=== PATIENT | female | born 1975 | race Caucasian/White ===

== ENCOUNTER 2018-06-21 11:52 | Emergency (ER) | payer MEDICAID ==
--- NOTE | 2018-06-21 12:36 | EDM.PDOC ---
ED HPI GENERAL MEDICAL PROBLEM - General Chief Complaint: ENT Problem Stated Complaint: SORE THROAT Time Seen by Provider: 06/21/18 12:35 Source of Information: Reports: Patient History Limitations: Reports: No Limitations - History of Present Illness INITIAL COMMENTS - FREE TEXT/NARRATIVE: 43-year-old female accompanies her 6-year-old son to the ED has been ill for the last 4-1/2 days with high fever greater than 102 with associated cough sore throat and poor appetite. His symptoms certainly sound like he may well of had influenza and is at the talonavicular his illness. He had a sore throat still and therefore she brought him to the ED for further evaluation. He missed all of last weeks of school except for Saturday. Herself is now developing a scratchy sore throat this morning. She has no cough bodyache or headache or fever yet. She did not have a flu shot this year Onset: Today Onset Date: 06/21/18 Onset Time: 07:00 Duration: Hour(s): Location: Reports: Neck (Sore throat) Quality: Reports: Ache, Burning Severity: Moderate (Sore throat) Improves with: Reports: Medication Worsens with: Reports: None Context: Reports: Sick Contact (Son is ill with upper respiratory tract infection suggestive of influenza and is with her in the ED. He will be screened for the influenza virus.). 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 Denies: Fever, Chills, Malaise, Weakness, Fatigue, Weight Loss HEENT: Reports: Throat Pain Respiratory: Reports: Cough Cardiovascular: Reports: No Symptoms (Has a bit of a chronic cough from smoking. ) Endocrine: Reports: No Symptoms, Polyuria GI/Abdominal: Reports: No Symptoms : Reports: No Symptoms Musculoskeletal: Reports: No Symptoms Skin: Reports: No Symptoms Neurological: Reports: No Symptoms Psychiatric: Reports: No Symptoms Hematologic/Lymphatic: Reports: No Symptoms Immunologic: Reports: No Symptoms ED EXAM, ENT - Physical Exam Exam: See Below Exam Limited By: No Limitations General Appearance: Alert, WD/WN, No Apparent Distress, Other (Febrile at this time with normal vital signs) Eye Exam: Bilateral Eye: Normal Inspection Ears: Normal TMs Mouth/Throat: Other (The oropharynx is very minimally inflamed without any exudate. Clinically this is a viral pharyngitis.) Neck: Normal Inspection, Supple, Non-Tender, Full Range of Motion. No: Lymphadenopathy (L), Lymphadenopathy (R) Respiratory/Chest: No Respiratory Distress, Lungs Clear, Normal Breath Sounds, No Accessory Muscle Use Cardiovascular: Normal Peripheral Pulses, Regular Rate, Rhythm, No Edema, No Murmur, No Rub Psychiatric: Other (Hyperactive affect.) Skin: Warm, Dry, Intact, Normal Color, No Rash Course - Vital Signs Last Recorded V/S: Last Vital Signs Temp 36.4 C 06/21/18 12:15 Pulse 73 06/21/18 12:15 Resp 16 06/21/18 12:15 BP 121/87 06/21/18 12:15 Pulse Ox 97 06/21/18 12:15 - Radiology Interpretation Free Text/Narrative:: 43-year-old female attends the ED complaining of sore throat. She attends the ED with her 6-year-old son has been ill for the last 4 Days with high fever cough bodyaches and poor appetite. His symptoms suggest that he may well of been suffering from influenza. He was therefore screen in the ED for influenza. She herself is complaining of a scratchy sore throat. She has no cough high fever headache or decreased appetite at this time. Examination of her throat shows mild erythema suggestive of a viral pharyngitis. However her son status came back positive for influenza type A. Therefore she will be placed on prophylaxis with Tamiflu 75 mg once daily for the next 10 days unless she develops symptoms in which time she would increase it to twice a day dosing. She 'll use Motrin 600 mg every 6 hours as needed for sore throat. Departure - Departure Time of Disposition: 13:43 Disposition: Home, Self-Care 01 Condition: Fair Clinical Impression: Viral upper respiratory tract infection - Discharge Information *PRESCRIPTION DRUG MONITORING PROGRAM REVIEWED*: Not Applicable *COPY OF PRESCRIPTION DRUG MONITORING REPORT IN PATIENT SHIVA: Not Applicable Prescriptions: Oseltamivir [Tamiflu] 75 mg PO ASDIRECTED #10 cap Instructions: Viral Respiratory Infection, [id number], Upper Respiratory Infection, Adult, [id number] Referrals: PCP,None [Primary Care Provider] - Forms: ED Department Discharge Additional Instructions: Evaluation the emergency room today in regards to development of a scratchy sore throat this morning. As identified your son is with you whom has been ill with high fever for the last 5 days associated cough and sore throat as well. On examination ears were normal oropharynx is slightly erythematous suggesting a viral infection with no signs of a bacterial infection or strep throat. No swollen glands identified. This appears to be a viral upper respiratory tract infection. Conservative treatment with Motrin 600 mg every 6 hours if needed for sore throat and/or fever. Diet as tolerated. Slight change in plans now since her son's influenza screen came back positive. Suggest use starting Tamiflu 75 mg once daily in an effort to prevent the flu virus from a getting you. If you start to develop full blown symptoms with headache bodyache cough and loss of appetite you should take influenza tablet Tamiflu twice daily for 5 days to complete therapy. May need Motrin 600 mg every 6 hours for fever and headache relief.
== END 2018-06-21 13:50 | disposition home or self-care (01) ==
LOC: JD.ED 11:52
DX: J06.9 Acute upper respiratory infection, unspecified (principal)
CPT/HCPCS: 99282

== ENCOUNTER 2020-09-26 14:11 | Emergency (ER) | payer SELFPAY ==
--- NOTE | 2020-09-26 15:02 | EDM.PDOC ---
ED HPI GENERAL MEDICAL PROBLEM - General Chief Complaint: Upper Extremity Injury/Pain Stated Complaint: LT HAND PAIN Time Seen by Provider: 09/26/20 14:48 Source of Information: Reports: Patient History Limitations: Reports: No Limitations - History of Present Illness INITIAL COMMENTS - FREE TEXT/NARRATIVE: She presents with left hand pain. She did have a fall about 2 weeks ago and injured her hand but it feels like it was doing well and then today while at work she had acute onset of increasing pain in the fifth metacarpal and all of a sudden more swollen and feeling red and hot. She has still feels numbness and tingling to the finger of the fifth on the left she otherwise is right-handed. Denies any wrist pain elbow pain she is healing up from looks like a contusion to the left lower jovel area no calf pain or tenderness except for over the area that is bruised. 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: - Past Surgical History Female Surgical History: Reports: Oophorectomy, Other (See Below) Other Female Surgeries/Procedures: partial hysterectomy Social & Family History - Tobacco Use Tobacco Use Status *Q: Never Tobacco User Second Hand Smoke Exposure: No - Caffeine Use Caffeine Use: Reports: Tea - Recreational Drug Use Recreational Drug Use: No - Living Situation & Occupation Living situation: Reports: Single Occupation: Unemployed Review of Systems - Review of Systems Review Of Systems: See Below Constitutional: Denies: Chills, Fever Musculoskeletal: Reports: Hand Pain, Joint Pain, Joint Swelling, Muscle Pain Skin: Reports: Erythema Neurological: Reports: Numbness, Tingling, Other (Numbness and tingling to the fifth finger on the left cap refill is normal) Psychiatric: Reports: No Symptoms ED EXAM, GENERAL - Physical Exam Exam: See Below Exam Limited By: No Limitations General Appearance: Alert, WD/WN, No Apparent Distress Peripheral Pulses: 2+: Radial (L) Extremities: Normal Capillary Refill, Joint Swelling, Limited Range of Motion, Other (Left hand reveals area of redness and tenderness at the distal metacarpal with pain with range of motion no rotational deformity noted no loss of cap refill normal cap refill less than 2 seconds, sensation is somewhat tingly and numb on the distal tip otherwise no proximal metacarpal pain no carpal ) Neurological: Alert, Oriented Psychiatric: Normal Affect Course - Vital Signs Text/Narrative:: Rule out fracture or infection. X-rays ordered Last Recorded V/S: Last Vital Signs Temp 97.8 F 09/26/20 14:43 Pulse 75 09/26/20 14:43 Resp 16 09/26/20 14:43 BP 133/81 09/26/20 14:43 Pulse Ox 100 09/26/20 14:43 - Radiology Interpretation Free Text/Narrative:: EKG reviewed with radiology shows left hand 4 views no acute fracture noted no soft tissue swelling no acute findings. - Re-Assessments/Exams Free Text/Narrative Re-Assessment/Exam: 09/26/20 16:14 Area is tender and red does not seem to be an obvious abscess or cellulitis it presents seems an uncommon area to be a gouty flareup. We will treat her symptomatically with Naprosyn, elevate ice, follow-up and return precautions given. Departure - Departure Time of Disposition: 16:20 Disposition: Home, Self-Care 01 Condition: Fair Clinical Impression: Hand pain, left - Discharge Information Instructions: Hand Pain Referrals: PCP,None [Primary Care Provider] - Forms: ED Department Discharge Additional Instructions: Take Naprosyn 500 mg twice a day as needed for an anti-inflammatory pain ice elevate, return if any increasing pain especially with more swelling redness red streaking fevers or worsening symptoms Sepsis Event Note (ED) - Evaluation Sepsis Screening Result: No Definite Risk - Focused Exam Vital Signs: Vital Signs Temp Pulse Resp BP Pulse Ox 09/26/20 14:43 97.8 F 75 16 133/81 100
--- NOTE | 2020-09-26 15:29 | CR ---
Left hand: 4 views of the left hand were obtained. Comparison: No prior hand exam is available. Joint spaces are maintained. No acute fracture, dislocation or other bony abnormality is seen. Impression: 1. No abnormality is identified on 4 view left hand exam. Diagnostic code #1
== END 2020-09-26 16:23 | disposition home or self-care (01) ==
LOC: JD.ED 14:11
DX: M79.642 Pain in left hand (principal)
CPT/HCPCS: 73130-26-LT; 73130-LT; 99283

== ENCOUNTER 2021-10-17 08:31 | Emergency (ER) | payer SELFPAY ==
[2021-10-17] MEDS ORDERED: LORazepam 1 MG Tab PO ONE (09:07)
== END 2021-10-17 11:35 | disposition home or self-care (01) ==
LOC: JD.ED 08:31
DX: F41.9 Anxiety disorder, unspecified (principal); Z90.710 Acquired absence of both cervix and uterus
CPT/HCPCS: 36415; 80053; 84443; 84484; 85025; 93005; 99284; A9270

== ENCOUNTER 2023-07-02 07:27 | Emergency (ER) | payer OTHER ==
[2023-07-02 08:00] LABS: BASOPHILS ABSOLUTE AUTO 0.1 K/mm3 (0.0-0.2); BASOPHILS PERCENT AUTO 0.7 % (0.0-1.0); EOSINOPHILS ABSOLUTE AUTO 0.1 K/mm3 (0.0-0.4); HEMATOCRIT 44.3 % (37.0-47.0); HEMOGLOBIN 14.8 gm/dl (12.0-16.0); IMMATURE GRAN ABSOLUTE AUTO 0.07 K/mm3 (0.00-0.05); IMMATURE GRAN PERCENT AUTO 0.7 % (0.0-0.4); LYMPHOCYTES ABSOLUTE AUTO 1.6 K/mm3 (1.0-4.8); LYMPHOCYTES PERCENT AUTO 16.4 % (24.0-44.0); MEAN CORPUSCULAR HGB CONC 33.4 g/dl (32.0-36.0); MEAN CORPUSCULAR VOLUME 98.9 fl (83.0-99.0); MEAN PLATELET VOLUME 9.5 fl (9.4-12.3); MONOCYTES ABSOLUTE AUTO 0.9 K/mm3 (0.0-0.8); NEUTROPHILS ABSOLUTE AUTO 6.9 K/mm3 (1.8-7.7); NEUTROPHILS PERCENT AUTO 72.2 % (41.0-71.0); PLATELET COUNT,PLT 329 K/mm3 (150-400); RED BLOOD CELL COUNT 4.48 M/mm3 (4.10-5.30); WHITE BLOOD CELL COUNT,WBC 9.53 K/mm3 (3.9-11.3)
[2023-07-02] MEDS: Aspirin 81 MG Tab.Chew PO ONE (08:12)
[2023-07-02] MEDS: Sodium Chloride 0.9% 10 ML Syringe FLUSH PRN ×2 (08:14→10:43)
[2023-07-02 08:20] LABS: INR 0.94; PROTHROMBIN TIME 10.1 SECONDS (9.7-12.0)
[2023-07-02 08:30] LABS: A/G RATIO 0.9 (1-2); ALANINE AMINOTRANSFERASE,ALT 97 U/L (14-59); ALBUMIN 4.1 g/dl (3.4-5.0); ALKALINE PHOSPHATASE 90 U/L (46-116); ANION GAP 11.6 (5-15); ASPARTATE AMNIOTRANSFERASE,AST 73 U/L (15-37); BILIRUBIN TOTAL 0.5 mg/dL (0.2-1.0); BLOOD UREA NITROGEN,BUN 9 mg/dL (7-18); BUN/CREATININE RATIO 11.3 (14-18); CALCIUM 8.9 mg/dL (8.5-10.1); CARBON DIOXIDE,CO2 29 mEq/L (21-32); CHLORIDE,CL 101 mEq/L (98-107); CREATININE 0.8 mg/dL (0.55-1.02); EST CRCL DRUG DOSING (CG) 79.07 mL/min; ESTIMATED GFR 92 mL/min (>60); GLUCOSE RANDOM 112 mg/dL (70-99); MAGNESIUM 1.9 mg/dL (1.8-2.4); POTASSIUM,K 3.6 mEq/L (3.5-5.1); PROTEIN TOTAL,TP 8.7 g/dl (6.4-8.2); SODIUM,NA 138 mEq/L (136-145)
[2023-07-02 08:32] LABS: TROPONIN I HIGH SENSITIVITY < 4 pg/mL (<=51)
[2023-07-02] MEDS: Iopamidol 755 Mg/ML 100 ML Bottle IVPUSH ONE (10:42)
[2023-07-02] MEDS: Sodium Chloride 0.9% 100 ML IV SCH (10:43)
== END 2023-07-02 13:50 | disposition home or self-care (01) ==
LOC: JD.ED 07:27
DX: S22.32XA Fracture of one rib, left side, initial encounter for closed fracture (principal); Z86.16 Personal history of COVID-19; X58.XXXA Exposure to other specified factors, initial encounter
CPT/HCPCS: 36415; 71045; 71275; 80053; 83735; 84484; 85025; 85379; 85610; 85730; 93005; 99285; A9270; J3490; Q9967